=== PATIENT | female | born 1945 | race Caucasian/White ===

== ENCOUNTER → 2024-03-14 08:42 | Outpatient (REF) | payer OTHER, SELFPAY ==
[2024-03-14 11:44] LABS: % Basophils 0.6 % (0-2); % Eosinophils 5.3 % (0-6); % Immature Granulocytes 0.2 % (0-0.5); % Monocytes 9.8 % (1.7-9.3); % Neutrophils 53.1 % (42.2-75.2); Absolute Eosinophils 0.3 10^3/uL (0-0.7); Absolute Lymphocytes 1.5 10^3/uL (1.2-3.4); Absolute Monocytes 0.5 10^3/uL (0.1-0.6); Absolute Neutrophils 2.6 10^3/uL (1.4-6.5); Hematocrit 41.2 % (37.0-47.0); Hemoglobin 14.1 g/dL (12.0-16.0); Mean Corp Hgb Conc. 34.2 g/dL (33.0-37.0); Mean Corpuscular Hgb 29.7 pg (27.0-31.0); Mean Corpuscular Volume 86.9 fL (81.0-99.0); Mean Platelet Volume 9.9 fL (7.4-10.4); Nucleated Red Blood Cells % 0 %; Platelet Count 175 10^3/uL (130-400); Red Blood Cell Count 4.74 10^6/uL (4.20-5.40); Red Cell Dist. Width 12.5 % (11.5-14.5); White Blood Cell Count 4.9 10^3/uL (4.8-10.8)
[2024-03-14 11:50] LABS: Erythrocyte Sed Rate 17 mm/hour (0-20)
[2024-03-14 12:09] LABS: ALT (SGPT) 19 U/L (0-35); AST (SGOT) 18 U/L (14-36); Albumin 4.4 g/dl (3.5-5.0); Alkaline Phosphatase 106 U/L (38-126); Blood Urea Nitrogen 19 mg/dl (7-17); Calcium 9.6 mg/dl (8.4-10.2); Carbon Dioxide 28 mmol/L (22-30); Chloride 102 mmol/L (98-107); Glucose 177 mg/dl (70-99); HDL Cholesterol 49 mg/dl; LDL Cholesterol, Calculated 204 mg/dl; Microalbumin, Random Urine 1.2 mg/dl (0.6-1.7); Microalbumin/creatinine Ratio 10.3 mg/g; Potassium 4.3 mmol/L (3.5-5.1); Sodium 140 mmol/L (135-145); Total Bilirubin 0.7 mg/dl (0.2-1.3); Total Cholesterol 290 mg/dl (50-199); Triglyceride 187 mg/dl (10-149); Very Low Density Lipoprotein 37 mg/dl (0-30); eGFR > 60.00
[2024-03-14 12:12] LABS: C-Reactive Protein < 5.00 mg/L (0.0-10.00)
[2024-03-14 12:25] LABS: Glycohemoglobin (HgbA1c) 6.6 % (4.0-5.6)
[2024-03-14 12:42] LABS: TSH Reflex To Free T4 2.51 uIU/ml (0.47-4.68)
== END ==
LOC: HWLAB 08:42
PROVIDERS: ATTENDING PHYSICIAN Internal Medicine
DX: R61 Generalized hyperhidrosis (principal); E11.9 Type 2 diabetes mellitus without complications; F32.A Depression, unspecified; R29.898 Other symptoms and signs involving the musculoskeletal system; E78.00 Pure hypercholesterolemia, unspecified
CPT/HCPCS: 36415; 80053; 80061; 82043; 82570; 83036; 84443; 85025; 85652; 86140

== ENCOUNTER 2024-03-30 22:53 | Observation (INO) | payer OTHER, SELFPAY ==
[2024-03-30 16:21] VITALS: BP 150/83
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
[2024-03-30] MEDS: ZOFRAN 4 MG IV ×2 (18:55→20:01)
[2024-03-30] MEDS: TORADOL 15 MG IV (18:55)
[2024-03-30] MEDS: DILAUDID 0.5 MG IV (18:55)
[2024-03-30 19:06] LABS: % Basophils 0.4 % (0-2); % Eosinophils 3.1 % (0-6); % Immature Granulocytes 0.4 % (0-0.5); % Lymphocytes 23.2 % (20.5-51.1); % Monocytes 9.6 % (1.7-9.3); % Neutrophils 63.3 % (42.2-75.2); Absolute Eosinophils 0.2 10^3/uL (0-0.7); Absolute Lymphocytes 1.7 10^3/uL (1.2-3.4); Absolute Monocytes 0.7 10^3/uL (0.1-0.6); Absolute Neutrophils 4.7 10^3/uL (1.4-6.5); Hematocrit 40.2 % (37.0-47.0); Hemoglobin 14.4 g/dL (12.0-16.0); Mean Corp Hgb Conc. 35.8 g/dL (33.0-37.0); Mean Corpuscular Hgb 30.1 pg (27.0-31.0); Mean Corpuscular Volume 83.9 fL (81.0-99.0); Mean Platelet Volume 10.3 fL (7.4-10.4); Nucleated Red Blood Cells % 0 %; Platelet Count 179 10^3/uL (130-400); Red Blood Cell Count 4.79 10^6/uL (4.20-5.40); Red Cell Dist. Width 12.3 % (11.5-14.5); White Blood Cell Count 7.4 10^3/uL (4.8-10.8)
[2024-03-30 19:22] LABS: Blood Urea Nitrogen 11 mg/dl (7-17); Calcium 10.3 mg/dl (8.4-10.2); Carbon Dioxide 26 mmol/L (22-30); Chloride 100 mmol/L (98-107); Glucose 136 mg/dl (70-99); Potassium 3.9 mmol/L (3.5-5.1); Sodium 141 mmol/L (135-145); eGFR > 60.00
[2024-03-30 21:13] VITALS: BP 145/88
[2024-03-30 22:00] VITALS: BP 134/71
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
[2024-03-30 23:00] VITALS: BP 123/65
[2024-03-30 23:38] VITALS: BP 166/91
[2024-03-30 23:39] VITALS: BMI 24.3
--- NOTE | 2024-03-30 23:45 | PTCARENOTE ---
Pt arrived to room 416-01. Pt ambulated from stretcher to bed. Pt AAOx3, VSS. Pt states, 'this is the first time in days with no pain.' Pt oriented to room, call santos placed within reach.
[2024-03-31] VITALS (7 sets, daily range): BP systolic 113–159; BP diastolic 63–86; PULSE 68; O2SAT 96
[2024-03-31] MEDS: ROXICODONE 10 MG PO (07:10)
[2024-03-31 07:51] LABS: Glucose - Point of Care 123 mg/dl (70-99)
[2024-03-31 08:21] LABS: Hematocrit 38.2 % (37.0-47.0); Hemoglobin 13.5 g/dL (12.0-16.0); Mean Corp Hgb Conc. 35.3 g/dL (33.0-37.0); Mean Corpuscular Hgb 31.2 pg (27.0-31.0); Mean Corpuscular Volume 88.2 fL (81.0-99.0); Mean Platelet Volume 10.2 fL (7.4-10.4); Platelet Count 148 10^3/uL (130-400); Red Blood Cell Count 4.33 10^6/uL (4.20-5.40); Red Cell Dist. Width 12.4 % (11.5-14.5); White Blood Cell Count 5.1 10^3/uL (4.8-10.8)
[2024-03-31] MEDS: COLACE 100 MG PO ×2 (08:31→21:07)
[2024-03-31 08:53] LABS: Blood Urea Nitrogen 12 mg/dl (7-17); Calcium 9.5 mg/dl (8.4-10.2); Carbon Dioxide 31 mmol/L (22-30); Chloride 100 mmol/L (98-107); Estimated Creatinine Clearance 56 ml/min; Glucose 121 mg/dl (70-99); Potassium 4.2 mmol/L (3.5-5.1); Sodium 141 mmol/L (135-145); eGFR > 60.00
[2024-03-31] MEDS: COMPAZINE 5 MG IV (08:56)
[2024-03-31] MEDS: LIDOCAINE 4% PATCH 1 PATCH TOPICAL (10:37)
[2024-03-31] MEDS: MIRALAX 17 GRAMS PO (10:37)
[2024-03-31] MEDS: TYLENOL 1000 MG PO ×3 (10:40→21:07)
[2024-03-31] MEDS: ZOFRAN 4 MG IV (11:20)
[2024-03-31 12:09] LABS: Glucose - Point of Care 141 mg/dl (70-99)
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
--- NOTE | 2024-03-31 16:55 | CM ---
Reviewed chart, met with patient to obtain information for assessment. Patient stated that she lives with a significant other in a bi level home with 12 steps to enter. She described herself as independent with her ADLs, personal care, bathing,
dressing and ambulates without device. 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 Patient was able to drive and could transport herself to her appointments and do all of her own shopping.
Patient denied any DME in her home.
She did have VN services years ago.
She has never been to a SNF.
Patient has a prescription plan and uses, [facility] in [place] on [id number].
Patient's PCP is, Molly Sanz DO.
Patient stated that she will be able to return home when discharged as her s.o is supportive.
She signed [facility] letter and it is now on chart.
Plan: Case management will continue to follow and assist with discharge planning. Patient would like to return home when cleared.
[2024-03-31 17:10] LABS: Glucose - Point of Care 120 mg/dl (70-99)
[2024-03-31] MEDS: SENOKOT 17.2 MG PO (21:07)
[2024-03-31 21:30] LABS: Glucose - Point of Care 133 mg/dl (70-99)
[2024-04-01 03:05] VITALS: BP 135/72
[2024-04-01 07:35] VITALS: BP 154/67
[2024-04-01 07:47] LABS: Glucose - Point of Care 148 mg/dl (70-99)
[2024-04-01 08:33] LABS: Blood Urea Nitrogen 13 mg/dl (7-17); Calcium 9.3 mg/dl (8.4-10.2); Carbon Dioxide 28 mmol/L (22-30); Chloride 100 mmol/L (98-107); Estimated Creatinine Clearance 50 ml/min; Glucose 138 mg/dl (70-99); Potassium 4.1 mmol/L (3.5-5.1); Sodium 141 mmol/L (135-145); eGFR > 60.00
[2024-04-01] MEDS: LIDOCAINE 4% PATCH 1 PATCH TOPICAL (08:35)
[2024-04-01] MEDS: TYLENOL 1000 MG PO (08:36)
[2024-04-01] MEDS: COLACE 100 MG PO (08:36)
[2024-04-01] MEDS: MIRALAX 17 GRAMS PO (08:36)
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
[2024-04-01 10:38] VITALS: BP 118/71
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
[2024-04-01 11:18] LABS: % Basophils 0.4 % (0-2); % Eosinophils 5.7 % (0-6); % Lymphocytes 33.6 % (20.5-51.1); % Monocytes 10.9 % (1.7-9.3); % Neutrophils 49.4 % (42.2-75.2); Absolute Eosinophils 0.3 10^3/uL (0-0.7); Absolute Lymphocytes 1.5 10^3/uL (1.2-3.4); Absolute Monocytes 0.5 10^3/uL (0.1-0.6); Absolute Neutrophils 2.3 10^3/uL (1.4-6.5); Hematocrit 38.1 % (37.0-47.0); Hemoglobin 13.1 g/dL (12.0-16.0); Mean Corp Hgb Conc. 34.4 g/dL (33.0-37.0); Mean Corpuscular Hgb 29.8 pg (27.0-31.0); Mean Corpuscular Volume 86.6 fL (81.0-99.0); Mean Platelet Volume 10.6 fL (7.4-10.4); Nucleated Red Blood Cells % 0 %; Platelet Count 164 10^3/uL (130-400); Red Cell Dist. Width 12.5 % (11.5-14.5); White Blood Cell Count 4.6 10^3/uL (4.8-10.8)
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
[2024-04-01 11:41] LABS: Glucose - Point of Care 111 mg/dl (70-99)
[2024-04-01 12:18] VITALS: BP 131/70; PULSE 65; O2SAT 98
== END 2024-04-01 14:00 | disposition home or self-care (01) ==
LOC: 4 WEST ACU 22:53
PROVIDERS: ADMITTING PHYSICIAN Hospitalist; ATTENDING PHYSICIAN Internal Medicine; EMERGENCY PHYSICIAN Emergency Medicine; FAMILY PHYSICIAN Internal Medicine
DX: R07.9 Chest pain, unspecified (principal); S22.20XA Unspecified fracture of sternum, initial encounter for closed fracture; V43.52XA Car driver injured in collision with other type car in traffic accident, initial encounter; Y93.9 Activity, unspecified; Y92.9 Unspecified place or not applicable; E78.00 Pure hypercholesterolemia, unspecified; R11.2 Nausea with vomiting, unspecified; E78.5 Hyperlipidemia, unspecified; E11.9 Type 2 diabetes mellitus without complications; Z87.19 Personal history of other diseases of the digestive system; Z88.0 Allergy status to penicillin
CPT/HCPCS: 71046; 71250; 80048; 82962; 85025; 85027; 96374; 96375; 96376; 97163; 97165; 97530; 97535; 99285; G0378

== ENCOUNTER → 2024-04-21 12:10 | Outpatient (REF) | payer OTHER, SELFPAY ==
[2024-04-24 08:02] LABS: ANA, IgG Reflex to HEp-2 None Detected (None Detected)
== END ==
LOC: HWLAB 12:10
PROVIDERS: ATTENDING PHYSICIAN Internal Medicine
DX: R23.2 Flushing (principal)
CPT/HCPCS: 36415; 86038; 86430; 86618

== ENCOUNTER → 2024-11-07 09:39 | Outpatient (REF) | payer OTHER, SELFPAY | LOC: RAD 09:39 | PROVIDERS: ATTENDING PHYSICIAN Hospitalist | DX: Z13.820 Encounter for screening for osteoporosis (principal); Z78.0 Asymptomatic menopausal state; M85.89 Other specified disorders of bone density and structure, multiple sites | CPT/HCPCS: 77080 ==

== ENCOUNTER → 2025-03-25 10:28 | Outpatient (REF) | payer OTHER, SELFPAY ==
[2025-03-25 11:48] LABS: Hematocrit 42.3 % (37.0-47.0); Hemoglobin 14.2 g/dL (12.0-16.0); Mean Corp Hgb Conc. 33.6 g/dL (33.0-37.0); Mean Corpuscular Volume 89.6 fL (81.0-99.0); Nucleated Red Blood Cells % 0 %; Platelet Count 164 10^3/uL (130-400); Red Cell Dist. Width 13.0 % (11.5-14.5)
[2025-03-25 12:04] LABS: Microalb - Urine Creatinine 218.100 mg/dl
[2025-03-25 12:08] LABS: Microalbumin, Random Urine 16.7 mg/dl (0.6-1.7)
[2025-03-25 12:32] LABS: ALT (SGPT) 21 U/L (0-35); AST (SGOT) 17 U/L (14-36); Albumin 4.4 g/dl (3.5-5.0); Alkaline Phosphatase 101 U/L (38-126); Blood Urea Nitrogen 10 mg/dl (7-17); Calcium 9.3 mg/dl (8.4-10.2); Carbon Dioxide 29 mmol/L (22-30); Chloride 106 mmol/L (98-107); Glucose 136 mg/dl (70-99); HDL Cholesterol 57 mg/dl; LDL Cholesterol, Calculated 206 mg/dl; Potassium 4.5 mmol/L (3.5-5.1); Sodium 141 mmol/L (135-145); Total Protein 7.1 g/dl (6.3-8.2); Very Low Density Lipoprotein 33 mg/dl (0-30); eGFR > 60.00
[2025-03-25 13:41] LABS: Glycohemoglobin (HgbA1c) 6.3 % (4.0-5.6)
== END ==
LOC: REG 10:28
PROVIDERS: ATTENDING PHYSICIAN Hospitalist
DX: E11.9 Type 2 diabetes mellitus without complications (principal); Z00.00 Encounter for general adult medical examination without abnormal findings
CPT/HCPCS: 36415; 80053; 80061; 82043; 82570; 83036; 85025

== ENCOUNTER → 2025-04-14 12:11 | Outpatient (REF) | payer OTHER, SELFPAY ==
[2025-04-14 14:27] LABS: TSH 9.21 uIU/ml (0.47-4.68)
[2025-04-14 15:03] LABS: Folate > 20.0 ng/ml (2.76-20); Vitamin B12 > 1000 pg/ml (239-931)
== END ==
LOC: REG 12:11
PROVIDERS: ATTENDING PHYSICIAN Hospitalist
DX: G62.9 Polyneuropathy, unspecified (principal)
CPT/HCPCS: 36415; 82607; 82746; 84439; 84443